=== PATIENT | male | born 1970 | race Caucasian/White ===

== ENCOUNTER 2018-05-18 18:49 | Emergency (ER) | payer OTHER, SELFPAY ==
[2018-05-18 19:23] VITALS: BP 129/78; PULSE 50; RESP 16; TEMP 36.1; O2SAT 100; BMI 25.8
--- NOTE | 2018-05-18 19:44 | ED_ITS ---
HPI - Extremity Injury (Lower) <Kailee Chandler PA-C - Last Filed: 05/18/18 21:49> General Chief Complaint: Extremity Injury, Lower Stated Complaint: LEG SWELLING LEFT LEG PAIN Time Seen by Provider: 05/18/18 19:43 Source: patient Mode of arrival: ambulatory Limitations: no limitations History of Present Illness HPI Narrative: This 47-year-old male comes in due to swelling for the last 3-4 months on his left leg/inner thigh area. He states that has noticed this gets worse off and on. 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 He states that about a month ago, he pinched the leg between a couple of large boats when in [place], however the swelling was going on prior to that. He states that he noticed it was worse after he flew to [place] last week and decided to come here after he returned home. He has been going about his usual activities including racing, running, paddle boarding etc on a daily basis, and he states he has not had any pain in the leg. He has not had any chest pain or dyspnea. He states that he gets swelling a little bit in the right ankle area due to previous fractures there, but no changes. He does not have any history of DVT or blood clots personally nor any known family history. Related Data Previous Rx's Medication Instructions Recorded rivaroxaban [Xarelto] 15 mg PO BID #42 tab 05/18/18 Allergies Allergy/AdvReac Type Severity Reaction Status Date / Time No Known Allergies Allergy Verified 05/18/18 20:20 Review of Systems <Kailee Chandler PA-C - Last Filed: 05/18/18 21:49> Review of Systems All systems reviewed & are unremarkable except as noted in HPI and below Exam <Kailee Chandler PA-C - Last Filed: 05/18/18 21:49> Narrative Exam Narrative: GENERAL APPEARANCE: Patient sitting comfortably, in no distress. NECK/THYROID: Neck supple, no JVD. LUNGS: Clear to auscultation bilaterally. HEART: Regular rate and rhythm without murmur, normal S1, S2, no S3 or S4. ABDOMEN: Soft, NT, ND, + BS x 4 quadrants EXTREMITIES: No cyanosis. PT and DP pulses 2+ bilaterally. No calf tenderness. Left greater saphenous vein is enlarged along its course from just proximal to the knee to proximal thigh. Minimally tender. Trace pitting edema on the feet NEUROLOGIC: Alert and oriented, normal speech, and coordination. Initial Vital Signs Initial Vital Signs: Vital Signs Temperature 96.9 F L 05/18/18 19:23 Pulse Rate 50 L 05/18/18 19:23 Respiratory Rate 16 05/18/18 19:23 Blood Pressure 129/78 H 05/18/18 19:23 Pulse Oximetry 100 05/18/18 19:23 <Angelina Patterson DO - Last Filed: 05/19/18 04:09> Initial Vital Signs Initial Vital Signs: Vital Signs Temperature 96.9 F L 05/18/18 19:23 Pulse Rate 50 L 05/18/18 19:23 Respiratory Rate 16 05/18/18 19:23 Blood Pressure 129/78 H 05/18/18 19:23 Pulse Oximetry 100 05/18/18 19:23 Course <Kailee Chandler PA-C - Last Filed: 05/18/18 21:49> Orders Ordered: ED Orders 05/18/18 19:43 US periph venous low extrem rt Stat Discontinued Medications Rivaroxaban (Xarelto) 15 mg PO NOW ONE Stop: 05/18/18 20:18 Last Admin: 05/18/18 20:34 Dose: 15 mg Vital Signs - 8 hr 05/18/18 20:25 05/18/18 21:27 Temperature 98.0 F Pulse Rate 51 L Pulse Rate [Bilateral Dorsalis Pedis] 72 Respiratory Rate 18 Blood Pressure [Left Arm] 124/79 H Pulse Oximetry 99 <Angelina Patterson DO - Last Filed: 05/19/18 04:09> Orders Ordered: ED Orders 05/18/18 19:43 periph venous low extrem rt Stat Discontinued Medications Rivaroxaban (Xarelto) 15 mg PO NOW ONE Stop: 05/18/18 20:18 Last Admin: 05/18/18 20:34 Dose: 15 mg Vital Signs - 8 hr 05/18/18 20:25 05/18/18 21:27 Temperature 98.0 F Pulse Rate 51 L Pulse Rate [Bilateral Dorsalis Pedis] 72 Respiratory Rate 18 Blood Pressure [Left Arm] 124/79 H Pulse Oximetry 99 MDM - Extremity Injury (Lower) <Kailee Chandler PA-C - Last Filed: 05/18/18 21:49> Imaging Data Venous US: Radiologist's impression: [address] [address] Ultrasound Report Signed Patient: Patrick Cifuentes MR#: [id number] : 1970 Acct:[id number] Age/Sex: 47 / M Date of Service: 05/18/18 Loc: ED Accession Number: [id number] Procedure: US periph venous low extrem rt Ordering Provider: Kailee Chandler P.A-C PROCEDURE: US PERIPH VENOUS LOW EXTREM RT INDICATIONS: L. LE edema 3 mo, pain TECHNIQUE: Real-time imaging, as well as color and pulse Doppler interrogation, were performed of the lower extremity deep veins from the inguinal ligament to the popliteal fossa. COMPARISON: None. FINDINGS: The deep veins are normally compressible, and free of intraluminal thrombus. Color and pulse Doppler demonstrate normal phasic intraluminal flow. There is normal augmentation response to distal compression maneuver. Thrombosis is present within the greater saphenous vein. Thrombosis is identified from the knee to the origin of the greater saphenous vein. IMPRESSION: Prominent thrombosis within the greater saphenous vein. However, given the extent of thrombosis particularly near its origin, there is increased risk for propagation of thrombosis into the deep veins. Dictated by: Linda Perez M.D. on 05/18/2018 at 20:23 Approved by: Linda Perez M.D. on 05/18/2018 at 20:26 Discharge Plan Departure Patient Disposition: Home, Self-Care Clinical Impression: Thrombophlebitis leg Discharge Date/Time: 05/18/18 21:29 Interventions: ED Discharge Assessment Last Done: 05/18/18 21:50 Instructions: Deep Vein Thrombosis, DI for Superficial Thrombophlebitis Activity Restrictions/Additional Instructions: Please call Dr. Damon's office tomorrow and let them know you were seen in the ED, and see if you can arrange a visit sooner. You have a significant clot in the superficial vein you have noticed swelling in along the left thigh. You do not have any deep vein clot on the ultrasound, however blood thinning medication is still recommended at least for about 6 weeks. You are at increased risk for a deeper clot due to this. You can continue your usual activities, but remember you are at significantly higher risk of bleeding, so please exercise caution in your sports activities, and wear full padding and helmet. You should be evaluted right away for any head injury (or injury that could cause bleeding as being on these types of medications increase your bleeding risk). Do not take any aspirin or NSAIDs such as ibuprofen or Aleve. Take Tylenol as needed for pain. Return as we talked about if you have any difficulty breathing, chest pain, or acutely worsening leg pain or swelling. I have sent in a 21 day supply of the new blood thinner medication we gave you here in the emergency room tonniall. After that, there is a dose change and the medication will be 20 mg once daily instead of 15 mg twice daily as I have prescribed. I did not find any formulary information for these type of medications, however I did note for the pharmacist that they can substitute if there is something less expensive. Prescriptions: New rivaroxaban [Xarelto] 15 mg tablet 15 mg PO BID Qty: 42 RF: 0 Referrals: Yovany Damon MD [Non-Staff] - <Angelina Patterson DO - Last Filed: 05/19/18 04:09> Cosign ED Attending Cosmanuelature Attestation: I was immediately available in the department for consultation. Documentation has been reviewed. I agree with assessment and plan.
[2018-05-18 20:25] VITALS: PULSE 72
[2018-05-18] MEDS: RIVAROXABAN 10 MG TABLET 15 MG PO (20:34)
[2018-05-18 21:27] VITALS: BP 124/79; PULSE 51; RESP 18; TEMP 36.7; O2SAT 99
== END 2018-05-18 21:29 | disposition home or self-care (01) ==
PROVIDERS: Emergency Provider Internal Medicine
DX: I80.3 Phlebitis and thrombophlebitis of lower extremities, unspecified (principal)
CPT/HCPCS: 93971; 99282; 99284